=== PATIENT | female | born 1985 | race Caucasian/White ===

== ENCOUNTER 2021-02-27 19:34 | Emergency (ER) | payer OTHER ==
[~2021-02-27] VITALS: Ht 172.7 cm; Wt 102.1 kg
[~2021-02-27 19:34] MED LIST: BENTYL 20MG TAB20 MG PO; ZOFRAN ODT 4 MG4 MG PO
[2021-02-27] MEDS ORDERED: IBU600 MG PO (21:29)
== END 2021-02-27 22:27 | disposition home or self-care (01) ==
LOC: ER1 19:34
DX: Z20.822 Contact with and (suspected) exposure to COVID-19 (principal); Z23 Encounter for immunization
CPT/HCPCS: 99284; M0243; U0002